=== PATIENT | female | born 1945 | race Caucasian/White ===

== ENCOUNTER → 2020-01-07 10:47 | Outpatient (CLI) | payer MEDICARE, OTHER, SELFPAY ==
--- NOTE | 2020-01-07 | DI.MRI.S_ITS ---
BREAST MRI OF BOTH BREASTS: 01/07/2020 CLINICAL: Left breast invasive ductal carcinoma. PROCEDURE: MR BREAST BI WO/W CON INDICATIONS: LEFT BREAST CANCER TECHNIQUE: The patient was placed prone in a dedicated breast imaging coil. Precontrast axial STIR and 3D FLASH without fat saturation sequences were obtained. Both before and after bolus injection of contrast, sequential 1-minute axial 3D FLASH with fat saturation sequences for 3 time points, with subtraction images and maximum intensity projections (MIP's) generated. Delayed sagittal FLASH images with fat saturation were also obtained. 20 cc Prohance was injected without complication. Computer-aided detection, including computer algorithm analysis of MRI image data for lesion detection and characterization, pharmacokinetic analysis, with further physician review for interpretation, was performed. COMPARISON: Outside Film, CT, CT CHEST ABDOMEN PELVIS WITHOUT CONTRAST, 08/20/2019, 14:28. Outside Film, MR, MR BREAST BILATERAL WITH/WITHOUT CONTRAST, 08/20/2019, 13:12. FINDINGS: Image quality: Excellent. There is mild background parenchymal enhancement. Right breast: No suspicious enhancing mass or non-masslike enhancement. A small proteinaceous cyst is seen in the 2:00 position of the anterior breast tissue, stable. There is a new, benign-appearing intramammary lymph node with a fatty hilum in the o'clock position at mid depth. Left breast: Hypointensity of a biopsy clip is seen 10 cm from the nipple in the 12:00 position at the posterior depth. There is no evidence of residual enhancement or mass in this region. There is mild delayed non-masslike enhancement extending cranial and posterior towards the pectoralis muscle. Hypointense biopsy marker indicates the previously described chest wall mass which has decreased in size, now measuring approximately 1.6 x 0.6 x 1.4 cm and has morphology of an enlarged lymph node. Slightly more anterior to this mass there is a rounded 4 mm lymph node, and more caudal and posterior to this mass, there is a rounded 6 mm lymph node, neither of which demonstrate a hilar. More cranially in the axilla, hypointense biopsy marker indicates a previous kelvin mass which has become more ill-defined without a distinct measurable masslike component. There is mild non-masslike enhancement in this region Miscellaneous: Right chest Mediport is now present. No suspicious internal mammary chain lymphadenopathy. The visible portion of the liver, heart, and chest wall is normal. No osseous lesions are identified. IMPRESSION: KNOWN BIOPSY PROVEN MALIGNANCY 1. Interval resolution of suspicious enhancement in the 12:00 left breast lesion, biopsy proven DCIS. 2. Minor residual non-masslike enhancement extending towards the pectoralis muscle, decreased in intensity and quality compared to the prior study. Interval resolution of the pectoralis muscle enhancement. 3. Decreased size of chest wall mass which now has morphology of enlarged lymph node. 4. There are a few rounded and adjacent right axillary lymph nodes with morphology which may indicate pathologic involvement. 5. Interval resolution of a discrete high axillary kelvin mass with residual mild non-masslike enhancement in this region suspicious for residual disease. BIRADS 6, biopsy-proven neoplasm. COMMENT: The imaging literature indicates that a negative contrast breast MRI examination has a high sensitivity and a moderate specificity for detecting and excluding invasive carcinomas to a detection threshold of 3-5 mm; nonetheless, appropriate clinical and mammographic follow-up are recommended. MRI is not sensitive for detecting DCIS (ductal carcinoma in situ) and may not detect large invasive neoplasms that show only minimal such as mucinous carcinoma. If there are suspicious calcifications or clinically worrisome palpable masses, then biopsy should still be considered. Invasive neoplasms can be hidden by co-existent and benign enhancement caused by mastitis, hormone therapy effects, radiation therapy, , and recent biopsy or surgery. False positive examinations can occur in a number of circumstances, including breasts that have recently been subject to invasive procedures and those that contain atypical ductal hyperplasia, hormonally stimulated glandular tissue, fat necrosis, or radial scars. Dictated by: Leonarda Chavarria M.D. on 01/07/2020 at 16:34 This exam was interpreted at Station ID: [id number]. Electronically Signed By: Leonarda diaz/:01/07/2020 17:24:51 copy to: PAUL CASTILLO ACR BI-RADS Category 6: Known biopsy proven malignancy [id number]
== END ==
PROVIDERS: PCP Internal Medicine; Referring Provider Surgery; Visit Provider Surgery
DX: C50.812 Malignant neoplasm of overlapping sites of left female breast (principal); N60.01 Solitary cyst of right breast
CPT/HCPCS: 77049; A9579